=== PATIENT | female | born 1980 | race Hispanic/Latino ===

== ENCOUNTER 2018-01-03 06:00 | Day surgery (SDC) | payer OTHER ==
[2018-01-03 06:36] LABS: HEMATOCRIT 42.5 % (36.0-47.0); HEMOGLOBIN 14.4 g/dl (12.0-15.5); MEAN CORPUSCULAR HEMOGLOBIN 32.5 pg (27.0-33.0); MEAN CORPUSCULAR HGB CONC 33.9 g/dl (32.0-36.5); MEAN CORPUSCULAR VOLUME 95.9 fl (80.0-96.0); PLATELET COUNT, AUTOMATED 305 10^3/uL (150-450); RED BLOOD COUNT 4.43 10^6/uL (4.00-5.40); RED CELL DISTRIBUTION WIDTH 12.5 % (11.5-14.5)
[2018-01-03 06:59] LABS: ANION GAP 10 MEQ/L (8-16); BLOOD UREA NITROGEN 15 MG/DL (7-18); CALCIUM LEVEL 8.8 MG/DL (8.5-10.1); CARBON DIOXIDE LEVEL 25 MEQ/L (21-32); CHLORIDE LEVEL 106 MEQ/L (98-107); CREATININE FOR GFR 0.83 MG/DL (0.55-1.30); GLOMERULAR FILTRATION RATE > 60.0 (>60); GLUCOSE, FASTING 91 MG/DL (70-100); HCG, SERUM QUANTITATIVE < 1.0 MIU/ML; POTASSIUM SERUM 4.1 MEQ/L (3.5-5.1); SODIUM LEVEL 141 MEQ/L (136-145)
[2018-01-03] MEDS ORDERED: NS 800 ML IV (07:00)
[2018-01-03] MEDS ORDERED: ALBUTEROL SULFATE 2.5 MG/0.5 ML INH NEB SOLN As Ordered (07:08)
[2018-01-03] MEDS: ACETAMINOPHEN 650 MG SUPP As Ordered (07:10)
[2018-01-03] MEDS: LR 1,000 ML IV (07:10)
[2018-01-03] MEDS ORDERED: dexameTHASONE 4 MG/ML 1ML VIAL (J1100) As Ordered (07:15)
[2018-01-03] MEDS ORDERED: ROCURONIUM BROMIDE 50 MG/5 ML VIAL As Ordered (07:15)
[2018-01-03] MEDS ORDERED: LIDOCAINE 2% INJ 100 MG/5 ML SDV (FOR ANES.) As Ordered (07:15)
[2018-01-03] MEDS ORDERED: PROPOFOL 200 MG/20 ML VIAL As Ordered (07:15)
[2018-01-03] MEDS ORDERED: MIDAZOLAM INJ 2 MG/2 ML VIAL (J2250) As Ordered (07:16)
[2018-01-03] MEDS ORDERED: fentaNYL 100 MCG/2 ML INJECTION (J3010) As Ordered ×3 (07:16→09:38)
[2018-01-03] MEDS: ALBUTEROL SULFATE 2.5 MG/0.5 ML INH NEB SOLN INH (07:19)
[2018-01-03] MEDS: INDOMETHACIN 50 MG SUPPOSITORY (INDOCIN) As Ordered (07:36)
[2018-01-03] MEDS: ACETAMINOPHEN 650 MG SUPP PR (07:50)
[2018-01-03] MEDS: INDOMETHACIN 50 MG SUPPOSITORY (INDOCIN) PR (07:56)
[2018-01-03] MEDS ORDERED: NS 1,000 ML IV (08:00)
[2018-01-03] MEDS ORDERED: PHENYLephrine HCL 500 MCG/5 ML (100MCG/ML) SYRINGE (J2370) As Ordered (08:10)
[2018-01-03] MEDS: BUPIVACAINE HCL 0.5% 10 ML VIAL As Ordered (08:40)
[2018-01-03] MEDS ORDERED: GLYCOPYRROLATE INJ 0.2 MG/ML 2 ML VIAL As Ordered ×2 (08:44)
[2018-01-03] MEDS ORDERED: ONDANSETRON 4MG/2ML VIAL (J2405) As Ordered (08:44)
[2018-01-03] MEDS ORDERED: KETOROLAC 60 MG/2 ML VIAL (J1885) As Ordered (08:47)
[2018-01-03] MEDS ORDERED: LR 1,000 ML IV (09:30)
[2018-01-03] MEDS ORDERED: HYDROMORPHONE HCL 0.5 MG/ 0.5 ML SYRINGE (J1170 PER 1) IV (09:30)
[2018-01-03] MEDS: ONDANSETRON 4MG/2ML VIAL (J2405) IV (09:30)
[2018-01-03] MEDS: PERCOCET 5MG/325MG TAB PO (09:30)
[2018-01-03] MEDS: fentaNYL 100 MCG/2 ML INJECTION (J3010) IV ×3 (09:41→09:51)
[2018-01-03] MEDS: METOCLOPRAMIDE INJ 10MG/2ML VIAL (J2765) IV (10:55)
[2018-01-03] MEDS ORDERED: KETOROLAC 30 MG/ML VIAL (J1885) IV (15:00)
[2018-01-03] MEDS ORDERED: ONDANSETRON 4 MG ORAL DISINTEGRATING TAB (Q0162 PER 1MG) As Ordered (15:47)
[2018-01-03] MEDS: ONDANSETRON 4 MG TAB (S0181) PO (15:50)
== END 2018-01-03 15:55 | disposition home or self-care (01) ==
LOC: M SDC 06:00
DX: Z30.2 Encounter for sterilization (principal); R10.2 Pelvic and perineal pain; G43.909 Migraine, unspecified, not intractable, without status migrainosus; F41.0 Panic disorder [episodic paroxysmal anxiety]; Z88.5 Allergy status to narcotic agent
CPT/HCPCS: 58661